=== PATIENT | female | born 1945 | race Caucasian/White ===

== ENCOUNTER 2020-09-23 12:23 | Emergency (ER) | payer MEDICARE, OTHER, SELFPAY ==
[2020-09-23 12:30] VITALS: BP 141/91; PULSE 73; RESP 19; TEMP 36.6; O2SAT 99; BMI 24.0
--- NOTE | 2020-09-23 13:08 | HMH.EDUTC ---
[facility] [place] Clinical Impression: Encounter for laboratory testing for COVID-19 virus Disposition: Home, Self-Care Condition on Discharge: Good Instructions: DI for COVID-19 (Suspected or Confirmed ), COVID-19 Viral Test, COVID-19: Testing and Tracing, Preventing the Spread of Coronavirus Discharge Instructions Additional Instructions: You were tested for today for COVID19 your test result should be back in the next 24-48 hours, you may call to the [facility] to see if your test results are back in the next 48 hours [phone] [facility] hours are 9am-9pm You was given a handout with instructions for Self Quarantine and Self isolation for while you wait on test results and what to do if they are positive If you are positive the Health Dept will be contacting you also Referrals: Bobo Andera MD [Primary Care Provider] - As needed Forms: Work/School Release Time of Disposition: 13:10 Medical Decision Making - Denilson Inquiry Pt receiving controlled substance: No Denilson was queried for this patient: No Vital Signs: 09/23/20 12:30 Temperature 97.8 F Temperature Source Oral Pulse Rate [Right Brachial] 73 Respiratory Rate 19 Blood Pressure [Right Arm] 141/91 H Blood Pressure Mean [Right Arm] 107 Blood Pressure Source [Right Arm] Automatic Cuff Blood Pressure Position [Right Arm] Sitting 02 Sat by Pulse Oximetry 99 Oxygen Delivery Method Room Air Orders (Tests/Meds): ORDERS Category Date Time Status Covid-19 Nasal PCR Sendout [facility] Stat Lab 09/23/20 12:30 Received [facility] HPI - General Stated complaint: covid retest Time Seen by Provider: 09/23/20 13:08 Mode of Arrival: Ambulatory Source of Information: Patient Limitations: No Limitations Description of Symptoms (Recalled from Triage Doc. by RN): PATIENT REQUESTING COVID TEST D/T EXPOSURE; DENIES SYMPTOMS HEENT Symptoms (Recalled from RN notes): No Resp Symptoms (Recalled from RN notes): No Skin Symptoms (Recalled from RN notes): No MS Symptoms (Recalled from RN notes): No Functional Status (Recalled from RN notes): WNL - History of Present Illness Provider Complaint: Patient states that she was exposed to someone who was positive for COVID several weeks ago State that she was tested for COVID in [place] and was told it was negative and then called back the next day and told she was positive so she came in today to get retested to see if she is still showing positive Denies any symptoms - Related Data Allergies Allergy/AdvReac Type Severity Reaction Status Date / Time codeine [CODEINE] Allergy Unknown NA-HALLUCIN Verified 09/23/20 12:56 ATIONS - Worker's Comp Is this a Worker's Comp case?: No [facility] History - Hepatitis A Screen Drug use history?: No High risk sexual behaviors?: No History of sexually transmitted infection?: No Currently employed?: No Childcare worker?: No Do you have indoor plumbing?: Yes Do you have electricity?: Yes Attestation statement:: This patient has been screened for Hepatitis A risk factors. I have reviewed the patient's past medical history: Yes - Social History Alcohol Intake: never Occupational Status: other ROS Obtained: Yes All systems reviewed & no additional complaints, Yes Systems reviewed as appropriate & no additional complaints - Constitutional Constitutional: Reports system reviewed and no additional complaints, except as docu, Denies body ache, Denies chills, Denies fever(s), Denies headache(s) - ENT Ears, Nose, Mouth, and Throat: Reports system reviewed and no additional complaints, except as docu, Denies nasal congestion, Denies nasal discharge, Denies sore throat - Cardiovascular Cardiovascular: Reports system reviewed and no additional complaints, except as docu - Respiratory Respiratory: Yes system reviewed and no additional complaints, except as docu Physical Exam - General General appearance: alert, in no apparent distress - Respiratory Respiratory exam: Present: normal lung sounds
[2020-09-23 13:16] VITALS: BP 141/91; PULSE 73; RESP 19; TEMP 36.6; O2SAT 99
[2020-09-24 12:37] LABS: Covid-19 Nasal PCR Sendout P&C NEGATIVE
== END 2020-09-23 13:19 | disposition home or self-care (01) ==
PROVIDERS: Emergency Provider Nurse Practitioner; PCP Family Medicine
DX: Z20.828 Contact with and (suspected) exposure to other viral communicable diseases (principal)
CPT/HCPCS: G0463; 99201; U0004

== ENCOUNTER → 2020-11-13 07:51 | Outpatient (CLI) | payer MEDICARE, OTHER, SELFPAY ==
--- NOTE | 2020-11-13 07:55 | MM_ITS ---
PROCEDURE: MM DIG SCREENING MAMM BI W/CAD Referring Doctor: Bobo Andrea Patient Age:75Y CLINICAL INDICATION: SCREENING 75-year-old. No hormones. No new complaints. Noncontributory family history COMPARISON: MG DMSB DIG MAMM-SCREEN SARI from 02/14/2014 MG DMSB DIG MAMM-SCREEN SARI from 12/04/2015 MG DMDBAV DIG MAMM-DX SARI W ADD VIEWS from 07/15/2016 MG DMSB DIG MAMM-SCREEN SARI W/CAD from 08/04/2017 TECHNIQUE: Standard CC and MLO images were obtained. R2 CAD reviewed. Bilateral digital breast tomosynthesis included.. Additional nipple profile right MLO view FINDINGS: Moderate density breast.. Mild asymmetry. . LEFT BREAST-no new areas of significant concern. Subtle nodularity at superior central breast is similar to studies dating back to 2016 and appears overall stable. Stable dense benign calcification RIGHT BREAST.: On today's MLO view note small focal area increased density towards deep central breast labeled X.. This evident on on today's MLO tomosynthesis view as well. However it dissipate somewhat on a repeat MLO view with support summation shadow; and note less dense/less evident but similar density on previous MLO views. But since this feature more evident and denser today the these MLO view would suggest additional views and ultrasound.. .Only questionable possible matching area density at central breast on today's CCview & cc tomosynthesis views (axial image 32). Unimpressive but noted Overall tend to favor overlapping shadow or minor benign feature, but would suggest spot views and ultrasound right breast for further evaluation (spot cc and MLO view along with a full 90 degree view right breast suggested) . Other areas subtle and of minor nodularity at lateral right breast appear stable . A collection of fairly dense calcifications lateral breast that a progressed since previous study. These are fairly dense-favoring benign feature.. IMPRESSION: RIGHT BREAST: Focal ovoid density at the deep central right breast may have been present before-but is more evident &slightly denser today to the point that it does warrant additional spot views and ultrasound right breast to further evaluate Left breast:-no significant interval change. Bilateral follow-up 1 year on the left recommended BI-RAD Category: 0 Need Additional Imaging Evaluation FOLLOW-UP: IMM Immediate Follow-up Recommended (A letter has been sent to the patient regarding results of the study.) Dictated by: Alvin Bean MD 11/19/2020 18:04 Alvin Bean MD in [place] 11/19/2020 18:04
== END ==
PROVIDERS: PCP Family Medicine; Visit Provider Family Medicine
DX: Z12.31 Encounter for screening mammogram for malignant neoplasm of breast (principal)
CPT/HCPCS: 77063; 77067

== ENCOUNTER → 2020-12-02 14:07 | Outpatient (CLI) | payer MEDICARE, OTHER, SELFPAY ==
--- NOTE | 2020-12-02 14:10 | US_ITS ---
PROCEDURE: US BREAST RT COMPLETE CLINICAL INDICATION: ABN MAMM COMPARISON: No exams were available for comparison FINDINGS: There is diffuse somewhat heterogenic echogenicity throughout the breast. There is a small hypoechoic lesion at the 11 o'clock position mid breast measuring 0.7 x 0.5 by 0.5 cm with internal septations and this likely is a small complex cyst. It does not definitely correlate in location to the questionable asymmetric density on recent mammogram. There are 3 normal appearing nodes seen in the axilla. IMPRESSION: Probable small complex cyst with otherwise unremarkable ultrasound of the breast and recommend the patient continue with yearly screening mammography Dictated by: Dr. Aram Mancilla MD 12/04/2020 10:46 Dr. Aram Mancilla MD in [place] 12/04/2020 10:46
--- NOTE | 2020-12-02 15:11 | MM_ITS ---
PROCEDURE: MM DIG MAMM DX UNILAT RT CAD Digital Breast Tomosynthesis Included CLINICAL INDICATION: ABNORMAL SCREENING COMPARISON: MG DMDBAV DIG MAMM-DX SARI W ADD VIEWS from 07/15/2016 MG DMSB DIG MAMM-SCREEN SARI W/CAD from 08/04/2017 MG MM DIG SCREENING MAMM BI W/CAD from 11/13/2020 US US BREAST RT COMPLETE from 12/02/2020 TECHNIQUE: Standard CC and MLO images and 3D Tomosynthesis was obtained. R2 CAD reviewed. Spot compression MLO and CC views were obtained along with a 90 degree lateral view FINDINGS: The possible asymmetric density is not definitely seen on the spot CC view. Also the 90 degree lateral view lessens concern. The spot MLO view shows a similar subtle asymmetric density to the previous mammogram. Ultrasound exam performed the same date showed a small complex cyst at the 11 o'clock position which does not definitely correlate in position to the questionable area on the mammogram. Otherwise the ultrasound exam was unremarkable. IMPRESSION: Problem solving views lessen concern with no definite suspicious lesions seen BI-RAD Category: 1 Negative FOLLOW-UP: 1YR 1 Year Follow-up (A letter has been sent to the patient regarding results of the study.) Dictated by: Dr. Aram Mancilla MD 12/04/2020 10:43 Dr. Aram Mancilla MD in [place] 12/04/2020 10:43
== END ==
PROVIDERS: PCP Family Medicine; Visit Provider Family Medicine
DX: R92.8 Other abnormal and inconclusive findings on diagnostic imaging of breast (principal)
CPT/HCPCS: 76641; 77061; 77065; G0279

== ENCOUNTER → 2021-12-12 08:06 | Outpatient (CLI) | payer MEDICARE, OTHER, SELFPAY ==
--- NOTE | 2021-12-12 08:10 | MM_ITS ---
PROCEDURE INFORMATION: Exam: MG Bilateral Screening 3D Mammography Exam date and time: 12/12/2021 8:10 AM Age: 76 years old Clinical indication: Screening. No family history of breast cancer. TECHNIQUE: Imaging protocol: Bilateral Screening tomosynthesis and 2D mammography including computer-aided detection (CAD) when performed. COMPARISON: 1. MG MM DIG MAMM DX UNILAT RT CAD 12/02/2020 3:08 PM 2. MG MM DIG SCREENING MAMM BI W/CAD 11/13/2020 8:05 AM 3. MG DMSB DIG MAMM-SCREEN SARI W/CAD 08/04/2017 9:33 AM 4. MG DMDBAV DIG MAMM-DX SARI W ADD VIEWS 07/15/2016 1:50 PM FINDINGS: MAMMOGRAPHY: Breast composition: The breast tissue is composed of scattered areas of fibroglandular density. Mass: No suspicious mass. Architectural distortion: None. Calcifications: No suspicious calcifications. Asymmetric density: No developing asymmetry. Skin thickening: None. Axillary adenopathy: None. IMPRESSION: No mammographic evidence of malignancy. Annual screening is recommended unless otherwise clinically indicated. ASSESSMENT: BI-RADS Category 1: Negative
== END ==
PROVIDERS: PCP Family Medicine; Visit Provider Internal Medicine Adolescent Medicine
DX: Z12.31 Encounter for screening mammogram for malignant neoplasm of breast (principal)
CPT/HCPCS: 77063; 77067

== ENCOUNTER → 2022-04-22 16:30 | Outpatient (CLI) | payer MEDICARE, OTHER, SELFPAY | PROVIDERS: PCP Internal Medicine Adolescent Medicine; Visit Provider Internal Medicine Adolescent Medicine | DX: I49.9 Cardiac arrhythmia, unspecified (principal); R05.9 Cough, unspecified | CPT/HCPCS: 93225; 93226 ==

== ENCOUNTER 2022-04-24 17:03 | Emergency (ER) | payer MEDICARE, OTHER, SELFPAY ==
[2022-04-24 17:13] VITALS: BP 164/96; PULSE 97; RESP 17; TEMP 36.9; O2SAT 96; BMI 22.8
[2022-04-24 17:39] VITALS: BP 142/92; PULSE 101; RESP 20; TEMP 37; O2SAT 94; BMI 22.8
--- NOTE | 2022-04-24 17:43 | XR_ITS ---
PROCEDURE INFORMATION: Exam: XR Chest Exam date and time: 04/24/2022 5:50 PM Age: 76 years old Clinical indication: Shortness of breath; Additional info: SOA, wheezing TECHNIQUE: Imaging protocol: Radiologic exam of the chest. Views: 2 views. COMPARISON: No relevant prior studies available. FINDINGS: Lungs: Atelectatic changes noted within both lung bases. Bilateral hyperinflation is present. Pleural spaces: Unremarkable. No pleural effusion. No pneumothorax. Heart/Mediastinum: Unremarkable. No cardiomegaly. Bones/joints: Unremarkable. IMPRESSION: 1. Atelectatic changes noted within both lung bases. 2. Bilateral hyperinflation is present.
--- NOTE | 2022-04-24 17:43 | PC.NURSE ---
called radiology for chest x-ray
--- NOTE | 2022-04-24 18:15 | HMH.EDUTC ---
[facility] [place] Disposition Clinical Impression: Atelectasis of both lungs Disposition: Home, Self-Care Condition on Discharge: Good Instructions: Pneumonia-Adult, DI for Pneumonia -- Adult Additional Instructions: ? Start antibiotic today. Be sure to complete entire prescription even if feeling better ? Monitor temp. Tylenol every 4 hours as needed and / or ibuprofen every 6 hours as needed ( As long as your primary care physician has told you that it ok to take both. For fever/aches/pains ER if no less than 101 despite Tylenol or Motrin ? Humidifier/vaporizer or hot steamy shower ? Inhaler every 4-6 hours as needed like we discussed. If unsure how to use it, ask pharmacist to demonstrate how. Should help open airways and improve cough, wheezing, and shortness of breath *Tessalon Perles will not cause drowsiness but use at bedtime to help stop cough so that you may get some rest. *Start steroid today. Helps with inflammation therefore, cough and wheezing. Follow directions on the package. Reviewed side effects. Patient reports taking them before. Follow up IMMEDIATELY for new or worsening of symptoms OR no noticeable improvement over the next 48-72 hours. 911 immediately for any life threatening symptoms such as chest pain or difficulty breathing Prescriptions: Albuterol Sulfate [Proventil-HFA 90mcg/puff Inh] 1 - 2 puffs IH Q6HP PRN #1 each PRN Reason: Shortness Of Breath Transmission Status: Received by [id number] predniSONE [Deltasone 10mg tablet] 10 mg PO BID 5 Days #10 tab Transmission Status: Received by [id number] Cefdinir [Omnicef 300mg Capsule] 300 mg PO BID 10 Days #20 cap Transmission Status: Received by [id number] Referrals: Brent Wilson MD [Primary Care Provider] - As needed Time of Disposition: 18:45 Medical Decision Making - Denilson Inquiry Pt receiving controlled substance: No Denilson was queried for this patient: No Vital Signs: 04/24/22 17:13 04/24/22 17:39 04/24/22 18:46 Temperature 98.5 F 98.6 F 98.6 F Temperature Source Oral Oral Pulse Rate 101 H Pulse Rate [Right Radial] 97 H 101 H Respiratory Rate 17 20 18 Blood Pressure 154/93 H Blood Pressure [Right Arm] 164/96 H 142/92 H Blood Pressure Mean [Right Arm] 118 108 Blood Pressure Source [Right Arm] Automatic Cuff Automatic Cuff Blood Pressure Position [Right Arm] Sitting Sitting 02 Sat by Pulse Oximetry 96 94 L Oxygen Delivery Method Room Air Room Air Room Air Orders (Tests/Meds): ED MEDICATIONS Discontinued Medications Generic Name Dose Route Start Last Admin Trade Name Cheikh PRN Reason Stop Dose Admin Albuterol/Ipratropium 3 ml 04/24/22 17:43 04/24/22 17:46 Ipratropium/Albuterol 3 Ml Neb IH 04/24/22 17:44 3 ml ONCE ONE Administration - Radiology Data #1 Image(s): Chest Image Reviewed: Yes I have reviewed radiologist's interpretation IMPRESSION: 1. Atelectatic changes noted within both lung bases. 2. Bilateral hyperinflation is present. Medical Decision Narrative: After neb patient states that she is feeling much better Discussed with patient about transfer to the ED for further work up and evaluation and she declined states that she is feeling better after neb and wants to try medication and if she gets feeling worse or becomes more short of breath she will return to the ED States that her SOA is worse after coughing episode Medication discussed with pharmacy [facility] [place] HPI - General Stated complaint: cough congestion Time Seen by Provider: 04/24/22 17:50 Mode of Arrival: Ambulatory Source of Information: Patient Limitations: No Limitations Description of Symptoms (Recalled from Triage Doc. by RN): c/o sob, weakness and chest rattling since Wednesday but has increased the last few days. Having some small amounts of yellow/clear mucus HEENT Symptoms (Recalled from RN notes): No Resp Symptoms (Recalled from RN notes): Yes (cough, soa) Skin Symptoms (Recalled from R
[2022-04-24 18:46] VITALS: BP 154/93; PULSE 101; RESP 18; TEMP 37; O2SAT 100
== END 2022-04-24 18:50 | disposition home or self-care (01) ==
PROVIDERS: Emergency Provider Nurse Practitioner; PCP Internal Medicine Adolescent Medicine
DX: J98.11 Atelectasis (principal); R06.02 Shortness of breath; R53.1 Weakness; Z79.51 Long term (current) use of inhaled steroids; Z79.52 Long term (current) use of systemic steroids; Z88.5 Allergy status to narcotic agent
CPT/HCPCS: 71046; 99213; G0463